=== PATIENT | female | born 1965 | race African-American/Black ===

== ENCOUNTER 2021-07-03 06:38 | Inpatient (IN) | payer BC ==
[~2021-07-03] VITALS: Ht 154.9 cm; Wt 165.3 kg
[2021-07-03] VITALS (17 sets, daily range): BP systolic 113–151; BP diastolic 49–85
--- NOTE | ~2021-07-03 | EMS ---
[address] [address] EMS Patient Care Report Name: BIBI DALLAS Room #: REG SARAH Austin#: [id number] Admission: 07/03/21 Attend Phys: Discharge: Date of : 65 Report #: [id number] THIS REPORT FOR: //name// Report Transmitted: 07/03/2021 06:31 EMS Care Summary [place], [place]/[facility] Incident [id number] @ 07/03/2021 05:52 Incident Location [address] [place] [address] Patient JUSTICE DALLAS Female, 55 Years 1965 Patient Address [address] [place] [address] Patient History Congestive Heart Failure (CHF),Hypertension (HTN),Hyperlipidemia,Gastro-Esophageal Reflux Disease (GERD),Morbid Obesity,Depression,Atrial Fibrillation,Sleep Apnea,Type 2 Diabetes,Chronic Respiratory Failure, Patient Allergies No known allergies, Patient Medications Diltiazem, Eliquis, Vitamin B12, Ascorbic Acid, Ferrous Sulfate, Albuterol, Sertraline, Torsemide, Prednisone, Folic acid, Cholecalciferol, Chief Complaint Lethargic, decrease SaO2 Disposition Transported No Lights/Superior Dispatch Reason Breathing Problem Transported To [address] [address] EMS Patient Care Report Name: BIBI DALLAS Room #: REG Geovanna#: [id number] Admission: 07/03/21 Attend Phys: Discharge: Date of : 65 Report #: [id number] Narrative Called for SOB. Upon arrival, pt was in her bed, lethargic and in minor/moderate resp distress. NH staff reported pt was last known well at 2330 last night and then at 0330 was arguing with roommate. At 0530 pt was found with RA SaO2 in 70's and would not improve with increased O2 @ 5 lpm. NH staff denied fever, vomiting and diarrhea. Pt placed on a NRB @ 12 lpm. 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 When moving her over, it was discovered the pt NC which she wears at all times was off the pt. It is believed that this was the culprit of the problem. In the ambulance, pt is now CAR x 3, in no resp distress. SaO2 of 100%. Pt states she does not hurt anywhere, is in no distress. Vitals obtained x 2, D-stick. En route: cont to monitor the pt, no significant changes. RR to the ER. Arrived: pt taken to ER #10 and moved to their bed w/o incident. Pt care & report to ER staff. Initial Vitals @06:03P: 88,R: 32,Pain: 0/10,GCS: 11,SpO2: 70, @06:16P: 86,R: 20,BP: 133/84,Pain: 0/10,GCS: 15,SpO2: 94,Revised Trauma: 12, @06:21P: 69,R: 18,BP: 106/71,Pain: 0/10,GCS: 15,Glucose: 150,SpO2: 100,Revised Trauma: 12, Assessments @06:01MENTAL:Confused,Person Oriented,SKIN:HEENT:LUNG SOUNDS:ABDOMEN:PELVIS//GI:EXTREMITIES:Left Arm: No Abnormalities,Right Arm: No Abnormalities,Left Leg: No Abnormalities,Right Leg: No Abnormalities,PULSE:Radial: 2+ Normal,NEURO:No Abnormalities,@06:20MENTAL:Person Oriented,Time Oriented,Place Oriented,Event Oriented,SKIN:HEENT:LUNG SOUNDS:ABDOMEN:PELVIS//GI:EXTREMITIES:PULSE:NEURO: Impression Acute Respiratory Distress (Dyspnea) Procedures @PTAOxygen FlowRate: 2 Device: Nasal Cannula (NC) Response: WorseFailed@06:05Oxygen FlowRate: 12 Device: Non Re-breather Mask (NRB) Response: ImprovedSucceeded@PTAOxygen FlowRate: 5 Device: Nasal Cannula (NC) Response: WorseFailed@06:10StretcherResponse: Unchanged@06:01ALS AssessmentResponse: ImprovedSucceeded Timeline CLIENT RELATIONSHIP CONSULTANT,Oxygen FlowRate: 2 Device: Nasal Cannula (NC) Response: WorseFailed, CLIENT RELATIONSHIP CONSULTANT,Oxygen FlowRate: 5 Device: Nasal Cannula (NC) Response: WorseFailed, 05:51,Call Received 05:51,Dispatch Notified 05:52,Dispatched 05:55,[place] [address] EMS Patient Care Report Name: BIBI DALLAS Room #: REG ER Geovanna#: [id number] Admission: 07/03/21 Attend Phys: Discharge: Date of : 65 Report #: [id number] 05:59,On Scene 06:00,At Patient 06:01,ALS Assessment,Response: ImprovedSucceeded, 06:03,BP: / M,PULSE: 88,RR: 32 R,SPO2: 70 Ox,ETCO2: ,BG: ,PAIN: 0,GCS: 11, 06:05,Oxygen FlowRate: 12 Device: Non Re-breather Mask (NRB) Response: ImprovedSucceeded, 06:10,Stretcher,Response: Unchanged 06:16,BP: 133/84 M,PULSE: 86,RR: 20 R,SPO2: 94 Ox,ETCO2: ,BG: ,PAIN: 0,GCS: 15, 06:21,BP: 106/71 M,PULSE: 69,RR: 18 R,SPO2: 100 Ox,ETCO2: ,B,PAIN: 0,GCS: 15, 06:21,Depart Scene 06:31,At Destination 06:57,Call Closed Disclaimer v1.1 Copyright 2020 [employer] This EMS Care Summary contains data elements from the applicable legal record (which may be displayed differently). It is designed to provide pertinent information for the following purposes: continuity of care, clinical quality, and state data reporting. The complete legal record is available to ED staff and administrators of the receiving hospital in ES's Patient Tracker. All data is provided "as is."
[2021-07-03 08:09] LABS: HEMATOCRIT 36.3 % (37.0-47.0); HEMOGLOBIN 9.8 gm/dL (12.0-15.0); MCH 21.3 pg (26.0-34.0); MCHC 27.1 g/dL (28.0-37.0); MCV 78.8 fL (80.0-100.0); PLATELET COUNT 261 thou/uL (150-400); RDW 20.3 % (10.5-14.5); WBC 7.6 thou/uL (4.0-11.0)
[2021-07-03 08:27] LABS: BE(vivo) 28.9 mmol/L (-2 to +3); HCO3 65.1 mmol/L (22.0-26.0); PCO2 189.3 mmHg (35.0-45.0); PO2 116.7 mmHg (80.0-100.0); pH 7.154 (7.360-7.450)
[2021-07-03 08:48] LABS: BUN 29 mg/dL (7-18); CALCIUM 8.6 mg/dL (8.5-10.1); CHLORIDE 99 mmol/L (98-107); CREATININE 0.9 mg/dL (0.6-1.0); GLUCOSE 120 mg/dL (74-106); SODIUM 145 mmol/L (136-145)
[2021-07-03 08:49] LABS: POTASSIUM 5.3 mmol/L (3.5-5.1)
[2021-07-03 08:51] LABS: CO2 > 45 mmol/L (21-32)
[2021-07-03 08:54] LABS: SGOT 42 U/L (15-37); SGPT 25 U/L (14-59); TOTAL BILIRUBIN 0.4 mg/dL (0.2-1.0); TOTAL PROTEIN 8.1 g/dL (6.4-8.2)
[2021-07-03 09:18] LABS: ABSOLUTE NEUTROPHILS 5.9 thou/uL (1.4-8.2); ANISOCYTOSIS 2+; HYPOCHROMASIA 2+; MICROCYTES 2+; PLATELET ESTIMATE NORMAL; POIKILOCYTOSIS 1+; POLYCHROMASIA SLIGHT
[2021-07-03 10:09] LABS: BE(vivo) 38.7 mmol/L (-2 to +3); HCO3 75.6 mmol/L (22.0-26.0); PCO2 199.8 mmHg (35.0-45.0); PO2 86.3 mmHg (80.0-100.0); pH 7.196 (7.360-7.450); sO2 91.6 % (92.0-98.0)
[2021-07-03 12:21] LABS: BE(vivo) 34.1 mmol/L (-2 to +3); HCO3 62.9 mmol/L (22.0-26.0); PCO2 81.8 mmHg (35.0-45.0); PO2 54.2 mmHg (80.0-100.0); pH 7.504 (7.360-7.450); sO2 88.6 % (92.0-98.0)
--- NOTE | 2021-07-03 12:40 | NUR ---
BARIATRIC BED ORDERED, TRYING TO GET BED HERE BEFORE SHE ARRIVES IN THE ICU
--- NOTE | 2021-07-03 13:54 | EKG ---
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 : 1965 Requested By: Luis Prater Order Number: [id number] MD: Xavier Broderick Measurements Intervals [place] Rate: 79 P: 52 FL: 158 QRS: 84 QRSD: 108 T: 41 QT: 395 QTc: 453 Interpretive Statements Sinus rhythm LAE, consider biatrial enlargement Borderline low voltage, extremity leads Minimal ST elevation, diffuse leads No previous ECG available for comparison Electronically Signed On 07-03-2021 13:54:10 CDT by Xavier Broderick [email or web address] <ELECTRONICALLY SIGNED> By: Xavier Broderick MD, FACC 07/03/21 1354 0740 0740 Xavier Broderick MD, FACC /EPI
[2021-07-03] MEDS ORDERED: PROAIR HFA8.5 GM INH (14:35)
[2021-07-03] MEDS ORDERED: VITAMIN C500 M1 PO (14:35)
[2021-07-03] MEDS ORDERED: DILTIAZEM 24HR240 M1 PO (14:36)
[2021-07-03] MEDS ORDERED: VITAMIN B-121000 MC2 PO (14:36)
[2021-07-03] MEDS ORDERED: D3-200050 MCG PO (14:36)
[2021-07-03] MEDS ORDERED: FOLIC ACID1 MG PO (14:37)
[2021-07-03] MEDS ORDERED: FEOSOL325 M1 PO (14:37)
[2021-07-03] MEDS ORDERED: JUVEN PACKET1 EAC1 PO (14:37)
[2021-07-03] MEDS ORDERED: ELIQUIS5 MG PO (14:37)
[2021-07-03] MEDS ORDERED: ROXICODONE5 M2 PO (14:38)
[2021-07-03] MEDS ORDERED: PREDNISONE 10 M10 MG PO (14:38)
[2021-07-03] MEDS ORDERED: METHIMAZOLE5 MG PO (14:38)
[2021-07-03] MEDS ORDERED: CENTRUM SILVER1 EAC5 PO (14:38)
[2021-07-03] MEDS ORDERED: TORSEMIDE10 MG PO (14:39)
[2021-07-03] MEDS ORDERED: AAA-MED REC COMPLETE PO (14:39)
[2021-07-03] MEDS ORDERED: ZOLOFT 50 MG TA50 MG PO (14:39)
[2021-07-03] MEDS ORDERED: PROSOURCE PLUS30 ML PO (14:39)
[2021-07-03 15:45] LABS: % SATURATION 14 % (20-39); IRON 58 ug/dL (50-170); TIBC 404 ug/dL (250-450)
--- NOTE | 2021-07-03 17:37 | NUR ---
VAT CONSULTED FOR CVAD. RIJ WAS WIDELY PATENT WITH USG. 6FR TL POWER JACC 25CM INSERTED TO 10CM EXTERNAL. STAT CXR ORDERED. PT HAS THICK, LARGE NECK.
--- NOTE | 2021-07-03 17:55 | NUR ---
RIJ RELEASED FOR IMMEDIATE USE PER PROTOCOL
--- NOTE | 2021-07-03 18:58 | NUR ---
PT ARRIVED ON THE UNIT AT 1400 ON THE VENT PT IS NOT MEETING GOALS DUE TO NEEDING VENT SUPPORT
[2021-07-03 20:07] LABS: FOLIC ACID 19.3 ng/mL (8.6-58.9)
--- NOTE | 2021-07-03 22:50 | NUR ---
ASSUMED CARE AT 1900. SPOKE TO PT'S MOTHER, BAO, AT 1999, GAVE UPDATE ON PT AND PROVIDED W/PT CODE. STARTED PT ON VERSED GTT IN ADDITION TO PROPOFOL. WILL CONTINUE TO MONITOR.
[2021-07-04] VITALS (45 sets, daily range): BP systolic 113–183; BP diastolic 61–96
[2021-07-04 05:25] LABS: HEMATOCRIT 33.9 % (37.0-47.0); HEMOGLOBIN 9.7 gm/dL (12.0-15.0); MCHC 28.7 g/dL (28.0-37.0); MCV 76.7 fL (80.0-100.0); PLATELET COUNT 305 thou/uL (150-400); RBC 4.42 mil/uL (4.20-5.00); RDW 19.7 % (10.5-14.5); WBC 10.8 thou/uL (4.0-11.0)
[2021-07-04 06:33] LABS: ALBUMIN 2.7 g/dL (3.4-5.0); BUN 36 mg/dL (7-18); CHLORIDE 95 mmol/L (98-107); CREATININE 1.6 mg/dL (0.6-1.0); GLUCOSE 142 mg/dL (74-106); MAGNESIUM 1.6 mg/dL (1.8-2.4); POTASSIUM 3.5 mmol/L (3.5-5.1); SGOT 20 U/L (15-37); SGPT 17 U/L (14-59); SODIUM 146 mmol/L (136-145); TOTAL BILIRUBIN 0.5 mg/dL (0.2-1.0); TOTAL PROTEIN 7.7 g/dL (6.4-8.2)
[2021-07-04 06:36] LABS: CO2 > 45 mmol/L (21-32)
[2021-07-04 09:21] LABS: BE(vivo) 27.9 mmol/L (-2 to +3); HCO3 52.4 mmol/L (22.0-26.0); PCO2 50.1 mmHg (35.0-45.0)
[2021-07-04 09:23] LABS: PO2 54.9 mmHg (80.0-100.0); pH 7.637 (7.360-7.450)
--- NOTE | 2021-07-04 11:35 | 2DMMODE ---
[facility] [place] [address] 2 D/M-MODE ECHOCARDIOGRAM Name: BIBI DALLAS Room #: 236-P ADM IN M.R.#: [id number] Admission: 07/03/21 Attend Phys: John Nolasco MD Discharge: Date of : 65 Report #: [id number] THIS REPORT FOR: cc: Luis Fernando Story MD, Srinath MD Lundgren, Craig H. MD [facility] ~ APPROVED REPORT Study performed: 07/04/2021 10:19:46 EXAM: Comprehensive 2D, Doppler, and color-flow Echocardiogram Patient Location: ICU Room #: 236 Status: routine BSA: 2.39 HR: 92 bpm BP: 151/82 mmHg Rhythm: Atrial Fibrillation Other Information Study Quality: Adequate Indications COPD Diabetes Atrial Fibrillation Dyspnea Hypertension/HDD Morbid obesity 2D Dimensions RVDd: 53.20 mm IVSd: 12.53 (7-11mm) LVOT Diam: 20.89 (18-24mm) LVDd: 47.27 mm PWd: 13.25 (7-11mm) Ascending Ao: 31.83 (22-36mm) LVDs: 34.87 (25-40mm) Left Atrium: 41.76 (27-40mm) Aortic Root: 25.44 mm IVC: 22.00 mm Volumes Left Atrial Volume (Systole) Single Plane 4CH: 49.61 mL Single Plane 2CH: 57.83 mL LA ESV Index: 25.00 mL/m2 [facility] [address] [place] [address] 2 D/M-MODE ECHOCARDIOGRAM Name: BIBI DALLAS Room #: 236-P ADM IN M.R.#: [id number] Admission: 07/03/21 Attend Phys: John Nolasco MD Discharge: Date of : 65 Report #: [id number] Aortic Valve AoV Peak Gonzalez.: 1.71 m/s AO Peak Gr.: 11.68 mmHg LVOT Max P.83 mmHg LVOT Max V: 1.21 m/s ABIOLA Vmax: 2.42 cm2 Pulmonary Valve PV Peak Gonzalez.: 1.29 m/s PV Peak Gr.: 6.70 mmHg Tricuspid Valve TR Peak Gonzalez.: 2.97 m/s TR Peak Gr.: 35.43 mmHg PA Pressure: 50.00 mmHg Left Ventricle The left ventricle is normal size. There is normal LV segmental wall motion. Mild concentric left ventricular hypertrophy. The left ventricular systolic function is normal. The left ventricular ejection fraction is within the normal range. LVEF is 60-65%. This study is not technically sufficient to allow evaluation of the LV diastolic function due to atrial fibrillation. Right Ventricle Right ventricle is dilated. The right ventricular systolic function is normal. Atria The left atrium size is normal. Right atrium is dilated. Aortic Valve The aortic valve is normal in structure. No aortic regurgitation is present. There is no aortic valvular stenosis. Mitral Valve The mitral valve is normal in structure. Trace to mild mitral regurgitation. No evidence of mitral valve stenosis. Tricuspid Valve The tricuspid valve is normal in structure. There is trace tricuspid regurgitation. Estimated PAP 50 mmHg. There is moderate pulmonary hypertension. Pulmonic Valve The pulmonary valve is normal in structure. Trace pulmonic regurgitation. [facility] [address] [place] [address] 2 D/M-MODE ECHOCARDIOGRAM Name: BIBI DALLAS Room #: [facility] ADM IN .R.#: [id number] Admission: 07/03/21 Attend Phys: John Nolasco MD Discharge: Date of : 65 Report #: [id number] Great Vessels The aortic root is normal in size. The inferior vena cava is dilated with no inspiratory collapse. Pericardium There is no pericardial effusion. <Conclusion> The left ventricular systolic function is normal. There is normal LV segmental wall motion. LVEF is 60-65%. Right atrium and ventricle are dilated. The aortic valve is normal in structure. No aortic regurgitation or stenosis The mitral valve is normal in structure. Trace to mild mitral regurgitation. There is trace tricuspid regurgitation. Estimated pulmnonary artery pressure of 50 mmHg. There is no pericardial effusion. <ELECTRONICALLY SIGNED> By: Juarez Méndez MD, [facility] 07/04/21 1134 1134 1134 Juarez Méndez MD, FACC /INF
--- NOTE | 2021-07-04 13:36 | NUR ---
55-year-old female and admitted on 07-03-21 and being treated for: Acute on chronic hypoxemic, hypercapnic, tachypneic respiratory failure requiring intubation, Hx of Diastolic CHR, Troponin of 13, Initial COVID results as negative, IDDM, borderline hyperkalemia, HTN. Anemia, Hx of Afin, Depression, Hyperparathyroidism, obesity with muscle weakness, and sleep apnea. Patient currently resides at [facility] at [phone]. Mother Alessia Bernstein is listed as next of kin at [phone] and per record nursing is keeping updated on current medical status with the mother. Pulmonary care of: FI01 of 40% with peep of 5. Per attending AM MD review: Plan to continue current plan of ICU care and will follow with all consultants. CM continues to follow MD's direction for care and transition and will intervene as needs are identified, noting anticipated when able the need for PT/OT evaluations for probable skilled care at discharge. For now, CM will await MD direction for discharge needs.
[2021-07-04 13:52] LABS: NUCLEATED RBCS 1 /100WBC
[2021-07-04 13:55] LABS: ANISOCYTOSIS 2+; HYPOCHROMASIA 2+; MICROCYTES 1+; OVALOCYTES 2+
--- NOTE | 2021-07-04 14:23 | NUR ---
SPOKE WITH PATIENT'S MOTHER, BAO, OVER THE PHONE AND SHE WAS UPDATED AND EDUCATED ON THE PATIENT'S CONDITION AND PLAN OF CARE FROM [id number].
--- NOTE | 2021-07-04 17:24 | NUR ---
PATIENT'S SON, MELA, CALLED FROM [phone] AND HE WAS UPDATED AND EDUCATED ON THE PATIENT'S CONDITION AND PLAN OF CARE. PATIENT SLOWLY PROGRESSING TOWARDS THE PLAN OF CARE EVIDENCED BY DECREASED SEDATION NEEDS FOR VENT MANAGEMENT.
[2021-07-05] VITALS (48 sets, daily range): BP systolic 88–152; BP diastolic 43–112
[2021-07-05 05:03] LABS: BE(vivo) 22.2 mmol/L (-2 to +3); HCO3 50.6 mmol/L (22.0-26.0); PCO2 77.1 mmHg (35.0-45.0); pH 7.435 (7.360-7.450); sO2 90.8 % (92.0-98.0)
[2021-07-05 05:49] LABS: HEMATOCRIT 35.1 % (37.0-47.0); HEMOGLOBIN 10.2 gm/dL (12.0-15.0); MCH 21.3 pg (26.0-34.0); MCV 73.3 fL (80.0-100.0); PLATELET COUNT 312 thou/uL (150-400); RBC 4.78 mil/uL (4.20-5.00); RDW 19.9 % (10.5-14.5)
[2021-07-05 06:00] LABS: ALBUMIN 2.7 g/dL (3.4-5.0); BUN 51 mg/dL (7-18); CALCIUM 8.9 mg/dL (8.5-10.1); CHLORIDE 99 mmol/L (98-107); CREATININE 1.8 mg/dL (0.6-1.0); GLUCOSE 158 mg/dL (74-106); POTASSIUM 3.1 mmol/L (3.5-5.1); SGOT 16 U/L (15-37); SGPT 16 U/L (14-59); SODIUM 147 mmol/L (136-145); TOTAL BILIRUBIN 0.3 mg/dL (0.2-1.0); TOTAL PROTEIN 7.9 g/dL (6.4-8.2)
[2021-07-05 06:04] LABS: CO2 > 45 mmol/L (21-32)
[2021-07-05 08:54] LABS: ABSOLUTE NEUTROPHILS 9.8 thou/uL (1.4-8.2); ANISOCYTOSIS 2+; HYPOCHROMASIA 2+; METAMYELOCYTES 1 %; MICROCYTES 1+; NUCLEATED RBCS 2 /100WBC
[2021-07-05 08:55] LABS: OVALOCYTES 1+
--- NOTE | 2021-07-05 11:07 | NUR ---
ASSUMED CARE OF PT AT 0700 GAVE PT SEDATION VACATION SO THAT RT COULD DO A CPAP TRIAL, PT BECAME EXTREMELY AGITATED AND WAS FLAILING AND THRASHING IN THE BED, SO PT WAS PUT BACK ON THE VENT AND SEDATED.
[2021-07-06] VITALS (47 sets, daily range): BP systolic 125–174; BP diastolic 63–86
[2021-07-06 04:51] LABS: ABSOLUTE NEUTROPHILS 13.1 thou/uL (1.4-8.2); BASOPHILS 0.1 % (0.0-2.0); HEMATOCRIT 33.6 % (37.0-47.0); LYMPHOCYTES 3.4 % (24.0-44.0); MCH 21.9 pg (26.0-34.0); MCHC 29.7 g/dL (28.0-37.0); MCV 73.5 fL (80.0-100.0); MONOCYTES 4.5 % (1.0-8.0); PLATELET COUNT 281 thou/uL (150-400); RBC 4.56 mil/uL (4.20-5.00); RDW 19.7 % (10.5-14.5); WBC 14.2 thou/uL (4.0-11.0)
[2021-07-06 05:33] LABS: CALCIUM 8.9 mg/dL (8.5-10.1); CREATININE 1.2 mg/dL (0.6-1.0); POTASSIUM 3.6 mmol/L (3.5-5.1)
--- NOTE | 2021-07-06 08:16 | NUR ---
updates faxed to [facility]
--- NOTE | 2021-07-06 09:10 | NUR ---
If unable to extubate today, recommend initiate enteral nutrition of vital HP at 30ml/hr goal.
--- NOTE | 2021-07-06 10:59 | NUR ---
Spoke to patient's mother, Alessia Bernstein, regarding patient condition. Patient failed CPAP trial at this time d/t patient's RR, RSI, and TV during trial. Sedation resumed. patient was alert and following commands at the time of CPAP trial.
--- NOTE | 2021-07-06 13:58 | NUR ---
Vent, nutritional support. No anticipated dc over the weekend. Cm consult to call son, spoke with sue. Had dc questions, don't want her to go back to [facility] per son. Education that sometimes there is not time t found another facility before someone is medically stable for dc. Well i going to look into in home care per clotilde. Cm provided education on hh vs private duty in home care that insurance does not cover. Ok still don't want her going back there so going to see about care at home per son. Will cont following as needed for dc needs.
--- NOTE | 2021-07-06 17:14 | NUR ---
Transport here to filler picker patient. Danitza Veronica notified of transport back to [facility].
[2021-07-07] VITALS (45 sets, daily range): BP systolic 108–161; BP diastolic 53–88
[2021-07-07 04:54] LABS: ABSOLUTE NEUTROPHILS 10.4 thou/uL (1.4-8.2); HEMATOCRIT 34.7 % (37.0-47.0); HEMOGLOBIN 10.3 gm/dL (12.0-15.0); LYMPHOCYTES 3.1 % (24.0-44.0); MCH 21.7 pg (26.0-34.0); MCHC 29.8 g/dL (28.0-37.0); MCV 72.9 fL (80.0-100.0); MONOCYTES 4.1 % (1.0-8.0); PLATELET COUNT 281 thou/uL (150-400); POLYS 92.8 % (36.0-66.0); RBC 4.76 mil/uL (4.20-5.00); RDW 20.3 % (10.5-14.5); WBC 11.2 thou/uL (4.0-11.0)
[2021-07-07 05:16] LABS: BE(vivo) 14.6 mmol/L (-2 to +3); HCO3 40.8 mmol/L (22.0-26.0); PCO2 58.4 mmHg (35.0-45.0); PO2 85.8 mmHg (80.0-100.0); pH 7.462 (7.360-7.450); sO2 96.7 % (92.0-98.0)
[2021-07-07 05:29] LABS: ALBUMIN 2.7 g/dL (3.4-5.0); CALCIUM 8.8 mg/dL (8.5-10.1); POTASSIUM 3.9 mmol/L (3.5-5.1); TOTAL BILIRUBIN 0.2 mg/dL (0.2-1.0); TOTAL PROTEIN 7.1 g/dL (6.4-8.2)
[2021-07-07 12:45] LABS: HCO3 41.4 mmol/L (22.0-26.0); PO2 87.3 mmHg (80.0-100.0); pH 7.356 (7.360-7.450); sO2 95.8 % (92.0-98.0)
[2021-07-07 12:46] LABS: PCO2 75.6 mmHg (35.0-45.0)
--- NOTE | 2021-07-07 13:25 | NUR ---
Dr. Cortes notified of [facility] s/p CPAP trial. Would like to hold off on extubating today and diurese her. Possible extubation tomorrow. Patient resumed on sedatives. Tolerated CPAP mode well.
--- NOTE | 2021-07-07 18:10 | NUR ---
Patient's son called and updated on patient condition. Questions answered.
[2021-07-08] VITALS (37 sets, daily range): BP systolic 104–173; BP diastolic 47–82
--- NOTE | 2021-07-08 01:10 | NUR ---
ASSUMED CARE OF PT AT 18:45. PT IS ABLE TO SQUEEZE HAND UPON REQUEST. SHE NODS HER HEAD YES AND NO. ELLEN. GAG +. VSS T 99. PT RESTING QUIETLY ON CURRENT SEDATION OF PRECIDEX AND PROPOFOL. BED DOWN CALL LIGHTIN REACH. SR WITH PACS ON MONITOR. RESPIRATIONS UNLABORED ON CURRENT VENT SETTINGS. RESIDUALS WNL. WILL CONTINUE TO MONITOR PT FOR CHANGES.
--- NOTE | 2021-07-08 08:35 | NUR ---
PT PROGRESSING TOWARDS D/C GOALS. VSS AFEBRILE THIS AM. TOLERATING TF. RESIDUALS WNL. NO C/O PAIN. NO S/S DISTRESS. BED CHANGED BATH COMPLETED. CHANGED RIGHT BUTTOCK WOUND ORDERED WITH [facility]AKINS SOLUTION AT 05:40 THIS AM. PT INC STOOLIN LG AMTS. AQUAFOR LOTION APPLIED ORDERED TO LES.
[2021-07-08 08:46] LABS: BE(vivo) 13.4 mmol/L (-2 to +3); HCO3 40.7 mmol/L (22.0-26.0); PCO2 67.5 mmHg (35.0-45.0); PO2 80.8 mmHg (80.0-100.0); pH 7.398 (7.360-7.450); sO2 95.5 % (92.0-98.0)
--- NOTE | 2021-07-08 10:00 | NUR ---
PT PASSES WEANING TRIAL; SHE IS EXTUBATED AT 0930. THIS RN AND RT IS AT THE BEDSIDE. PT HAS JUAN , VSS, AND BREATHING IS REGULAR. SHE IS SATTING 95% ON 4L VIA A FACE MASK WITH 35% FIO2. PT IS A/O X4, NO VOCAL CORD INJURY IS NOTED.
--- NOTE | 2021-07-08 11:32 | EKG ---
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 : 1965 Requested By: Harpreet Cortes Order Number: [id number] MD: Xavier Broderick Measurements Intervals [place] Rate: 80 P: 49 NC: 194 QRS: 69 QRSD: 106 T: 40 QT: 388 QTc: 448 Interpretive Statements Sinus rhythm Multiform ventricular premature complexes LAE, consider biatrial enlargement Low voltage, extremity leads Abnormal R-wave progression, late transition Baseline wander in lead(s) V6 Compared to ECG 07/03/2021 07:40:30 Ventricular premature complex(es) now present Electronically Signed On 07-08-2021 11:31:44 CDT by Xavier Broderick [email or web address] <ELECTRONICALLY SIGNED> By: Xavier Broderick MD, FAC 07/08/21 1131 1311 1311 Xavier Broderick MD, [facility] /EPI
[2021-07-09] VITALS (21 sets, daily range): BP systolic 123–174; BP diastolic 44–108
--- NOTE | 2021-07-09 06:00 | NUR ---
PT HAS BEEN AWAKE AND ALERT ALLL NIGHT WATCHING TV 900 CC UO THIS SHIFT C/0 RIGHT HAND BEING PAINFUL AND SWOLLEN. TYLENOL GIVEN A VERY DELIGHTFUL LITTLE LADY. PROGRESSING TOWARD GOALS. POSSIBLE TX TODAY
--- NOTE | 2021-07-09 13:46 | NUR ---
Pt son at bedside while pt works with PT.
--- NOTE | 2021-07-09 15:41 | NUR ---
Chart review. consult cm. Extubated on . Discussed during los and unit rounds. possible able to move out of icu today. o2 4 L/nc. opal reported she doesnt want to return to [facility]. Re-checked to see if able to check on other facility in area. When speaking with daughter poonam, education on dcp, therapy consults and recommendation for safe dc. 1st choice home with grandson sue # [phone], he trying to get her belongings from [facility] but she has to call to release them to him, hh will be fine per poonam.
[2021-07-10 03:29] VITALS: BP 115/70
--- NOTE | 2021-07-10 05:10 | NUR ---
PROGRESS PT A/O X4. NOT OOB THIS SHIFT BUT TO START PT/OT IN AM. C/O PAIN TO RIGHT HAND SWOLLEN FROM IV INFLITRATION, ELEVATED AND WARM BLANKET APPLIED, TYLENOL GIVEN WITH MINIMAL EFFECT. PT ABLE TO REPOSITION SELF IN BED. VSS TOLERATING CPAP ACCUCHECKS AND SSI ORDERED. CONTINUE POC.
[2021-07-10 07:14] VITALS: BP 121/64
[2021-07-10 10:52] LABS: BE(vivo) 11.4 mmol/L (-2 to +3); HCO3 39.6 mmol/L (22.0-26.0); PO2 83.9 mmHg (80.0-100.0)
[2021-07-10 10:53] LABS: pH 7.323 (7.360-7.450)
[2021-07-10 11:03] VITALS: BP 152/89
--- NOTE | 2021-07-10 11:10 | NUR ---
THIS RN RECEIVED CRITCAL LAB VALUE FROM [facility], PH 7.323, PCO2 78. THIS RN CALLED DR. SUN NO ORDERS RECEIVED AT THIS TIME.
--- NOTE | 2021-07-10 14:41 | NUR ---
SW reviewed chart and spoke with nursing and attending physician. Pt was transferred to from ICU. Pt is on 3L of O2 and IV steroids. PT/OT consulted. SW spoke with pt via phone. Introduced role of SW. Pt is alert/orientated x 4. Pt states that her goal is to return home with HH when medically stable for discharge. Pt states that her son will be able to stay with her for awhile. Pt does not want to return to [facility]. SW discussed alternate options for post-acute care if needed. Pt may consider if recommended. SW further discussed HH services. SW discussed several options for providers. No preference voiced at this time. Pt works for the [employer] and she is wanting to return to work soon if possible. Pt is normally on continuous O2 via NC (2-3L) through [employer] and has a cpap machine through [employer] Pt has a PCP, but cannot remember her name at this time. SW explained that her progress with therapy will be monitored and then discharge disposition can be discussed. Pt verbalized understanding. SW asked 5N vocational rehabilitation teacher to review therapy notes to determine if pt may benefit from a 5N consult. HERLINDA asked [facility] HH liaison to check pt's insurance for HH coverage. SW is following to assist as needed with discharge planning.
[2021-07-10 15:24] VITALS: BP 144/76
--- NOTE | 2021-07-10 16:12 | HC ---
[facility] [place] [address] CONSULTATION Name: BIBI DALLAS Room #: 359-P ADM IN M.R.#: [id number] Admission: 07/03/21 Attend Phys: John Nolasco MD Discharge: Date of : 65 Report #: [id number] THIS REPORT FOR: cc: Luis Fernando Story MD, Srinath MD Althoff,Jesús Dunn MD ~ DATE OF SERVICE: 07/05/2021 CHIEF COMPLAINT: Stage 3 gluteal pressure ulceration. HISTORY OF PRESENT ILLNESS: This is a 55-year-old female patient who was admitted to [facility] with respiratory distress. She is intubated. No history is obtainable. She has a history of COPD. ALLERGIES: No known drug allergies. PAST MEDICAL HISTORY: From her records include hypercapnic respiratory failure, COPD, obesity, hypertension, diabetes mellitus, hyperlipidemia, congestive heart failure, gastroesophageal reflux, atrial fibrillation. MEDICATIONS: Albuterol, vitamin C, vitamin B12, vitamin D3, diltiazem, Eliquis, Feosol, Filippo, methimazole, Roxicodone, torsemide. FAMILY HISTORY: Unknown. SOCIAL HISTORY: Unknown. REVIEW OF SYSTEMS: Not obtainable. PHYSICAL EXAMINATION: VITAL SIGNS: The patient's vital signs at this time include temperature 36.3, pulse 46, respiratory rate 14, blood pressure 126/72. GENERAL: This is a chronically ill-appearing female patient who appears to be in no obvious distress. She is on a ventilator. HEENT: Head is normocephalic. NECK: Supple. LUNGS: Diminished. HEART: Irregular. ABDOMEN: Soft, nontender. PELVIC: Pelvic region demonstrates stage 3 pressure ulceration to the right gluteal region. EXTREMITIES: Hyperkeratosis to bilateral lower extremities. LABORATORY STUDIES: Include sodium 147, potassium 3.1, chloride 99, CO2 greater than 45, BUN 51, creatinine 1.8, albumin is 2.7. White blood cell count is 11.[address] [address] CONSULTATION Name: BIBI DALLAS Room #: 359-P [facility] IN .R.#: [id number] Admission: 07/03/21 Attend Phys: John Nolasco MD Discharge: Date of : 65 Report #: [id number] with hemoglobin of 10.2. CLINICAL IMPRESSION: 1. Stage 3 pressure ulceration to the right gluteal region. 2. Hyperkeratosis, bilateral lower extremities. 3. Acute on chronic hypoxic, hypercapnic respiratory failure. 4. Morbid obesity. 5. Congestive heart failure. RECOMMENDATIONS: At this point in time, we will recommend topical Quarter Strength Dakin's moist gauze, ABD and tape b.i.d. low air loss mattress, q. 2 hours turning positioning. Recommend Aquaphor to the lower extremity hyperkeratosis. I appreciate being asked to see her in consultation. <ELECTRONICALLY SIGNED> By: Jesús Pike MD 07/10/21 1612 1209 2350 Jesús Pike MD /reese
--- NOTE | 2021-07-10 18:27 | NUR ---
PT ALERT AND ORIENTED X 4. CHANGED DRESSING ON R GLUTE. PT ON 3 L CURRENTLY AND IS ON 3 L AT HOME. LUNGS DIMINISHED. SPOKE WITH PT'S MOTHER THIS SHIFT, BAO, AND MOTHER WANTED TO KNOW IF PT WOULD BE GOING HOME WITH HOME HEALTH UPON DISCHARGE. PT DENIES PAIN. PT DENIES ANY NEEDS AT THIS TIME AND WILL CONTINUE TO MONITOR.
[2021-07-10 19:16] VITALS: BP 145/101
[2021-07-11 03:40] VITALS: BP 147/80
[2021-07-11 07:24] VITALS: BP 153/80
[2021-07-11 10:15] LABS: HEMATOCRIT 29.6 % (37.0-47.0); HEMOGLOBIN 8.3 gm/dL (12.0-15.0); MCH 20.7 pg (26.0-34.0); MCHC 27.9 g/dL (28.0-37.0); MCV 74.2 fL (80.0-100.0); RBC 3.99 mil/uL (4.20-5.00); RDW 20.2 % (10.5-14.5); WBC 12.5 thou/uL (4.0-11.0)
[2021-07-11 10:23] LABS: CALCIUM 8.6 mg/dL (8.5-10.1); CREATININE 0.8 mg/dL (0.6-1.0); MAGNESIUM 2.1 mg/dL (1.8-2.4); POTASSIUM 4.2 mmol/L (3.5-5.1)
[2021-07-11 11:20] VITALS: BP 155/93
[2021-07-11 11:47] LABS: HCO3 33.9 mmol/L (22.0-26.0); PCO2 69.9 mmHg (35.0-45.0); PO2 81.5 mmHg (80.0-100.0); pH 7.303 (7.360-7.450); sO2 94.5 % (92.0-98.0)
[2021-07-11 15:03] LABS: URINE BILIRUBIN NEGATIVE (Negative); URINE BLOOD NEGATIVE (Negative); URINE CLARITY CLEAR; URINE COLOR YELLOW; URINE GLUCOSE-RANDOM* NEGATIVE (Negative); URINE KETONES NEGATIVE (Negative); URINE LEUKOCYTES-REFLEX NEGATIVE (Negative); URINE NITRITE-REFLEX NEGATIVE (Negative); URINE PROTEIN (DIPSTICK) TRACE (Negative); URINE UROBILINOGEN 0.2 E.U./dl (0.2-1.0)
--- NOTE | 2021-07-11 16:07 | NUR ---
SW reviewed chart and spoke with nursing and attending physician. Pt is progressing towards goals for discharge. 5N consult completed. Pt does not meet admission criteria for 5N and insurance is [id number]. SW met with pt and her son at bedside to discuss discharge plan. Pt states her goal is to return home with HH. SW discussed additional options for post-acute care. Pt is adamant about going home with HH. HH options provided. No preference voiced. Pt's PCP is DR. Shannan Randle. Pt states she has a walker, home O2 and bipap at home. Pt states her bipap machine is at [facility]. SW updated attending physician and nursing. HERLINDA contacted [facility] liaison. [facility] HERLINDA requested liaison to meet with pt tomorrow. HERLINDA is following to assist as needed with discharge planning.
[2021-07-11 16:44] VITALS: BP 142/66
--- NOTE | 2021-07-11 16:47 | NUR ---
RESUMED PT CARE THIS AM. PT ALERT AND ORIENTED X 4. PT PLEASANT AND COOPERATIVE. CHANGED DRESSING ON R GLUTEAL WOUND X2 TODAY AND PHOTOGRAPHED. PT'S SON AT BEDSIDE THIS AFTERNOON. PT DENIES ANY PAIN OR NEEDS AT THE MOMENT. FALL PRECAUTIONS IN PLACE. WILL CONTINUE TO MONITOR.
[2021-07-11 19:14] VITALS: BP 181/81
--- NOTE | 2021-07-11 21:21 | NUR ---
PT CHEERFUL TALKATIVE WATCHING TV. O2 PER NC. LUNGS DIMINISHED, PT OBESE, CURRY TO DD. SBP ELEVATED PRN PROVIDED. DRESSING INTACT R GLUTEAL AREA. PT REQUESTED COFFEE AND PROVIDED. PT CALLS FOR ASSISTANCE.
--- NOTE | 2021-07-12 00:20 | NUR ---
PT REQUESTED BIPAP FOR HS, RESPIRATORY ASSISTED.
[2021-07-12 03:34] VITALS: BP 140/56
[2021-07-12 07:16] VITALS: BP 168/101
--- NOTE | 2021-07-12 08:50 | NUR ---
VASCULAR ACCESS NURSE ROUNDING. THIS PATIENT IS ON 1 PRN IVP MED. SUGGEST PERIPHERAL IV PLACEMENT AND REMOVAL OF THE CENTRAL LINE ACCESS TO DECREASE RISK OF A CENTRAL LINE RELATED BLOOD STREAM INFECTION.
[2021-07-12 11:25] VITALS: BP 143/95
[2021-07-12 14:52] LABS: HEMATOCRIT 29.6 % (37.0-47.0); HEMOGLOBIN 8.4 gm/dL (12.0-15.0); MCH 21.3 pg (26.0-34.0); MCHC 28.5 g/dL (28.0-37.0); MCV 74.6 fL (80.0-100.0); RBC 3.96 mil/uL (4.20-5.00); RDW 20.3 % (10.5-14.5); WBC 12.3 thou/uL (4.0-11.0)
[2021-07-12 14:56] LABS: CALCIUM 8.7 mg/dL (8.5-10.1); CREATININE 0.9 mg/dL (0.6-1.0); MAGNESIUM 1.8 mg/dL (1.8-2.4); POTASSIUM 4.6 mmol/L (3.5-5.1)
[2021-07-12 15:40] VITALS: BP 151/80
--- NOTE | 2021-07-12 16:22 | NUR ---
HERLINDA reviewed chart and spoke with nursing and attending physician. Pt remains on 3L of O2. Pt is progressing towards goals for discharge. [facility] liaison met with pt. Explained HH benefits. Pt is wanting to try to return back to work soon. Pt agreeable with considering post-acute placement. HERLINDA met with pt at bedside to discuss inpt acute rehab v. SNF options. List of in-network providers given to pt for review. Pt requests referral to [facility]. Pt states she was told her insurance only covers 14 days of skilled therapy, as pt was receiving therapy services initially at [facility]. Pt to review SNF list as well. SW faxed referral to [facility] and notified liaison of new referral. Awaiting insurance coverage details at this time. HERLINDA updated attending physician and HH liaison. HERLINDA is following to assist as needed with discharge planning.
--- NOTE | 2021-07-12 17:02 | NUR ---
assumed care of pt at 0700. pt alert and oriented x4 voicing no particular concerns. requiring 3L NC. up to physical therapy - able to walk to door and back with walker. sitting in chair throughout day. sinus tach with activity. blood sugars controlled. vitals stable. plans on dressing change when patient back in bed. anticipate d/c soon.
[2021-07-12 19:30] VITALS: BP 150/91
--- NOTE | 2021-07-12 22:49 | NUR ---
PT WAS UP IN CHAIR, 2 PERSON WITH WALKER BACK TO BED. PT HAS WIDE UNSTEADY GAIT WITH LEGS. O2 PER NC 3L SAME AT HOME. LUNGS RL CRACKLES. PT TALKING ABOUT WANTING TO GO BACK TO WORK TO HAVE SOCIAL INTERACTIONS, SHE STATED SHE OPENS ENVELOPES WHILE SITTING DOWN. . STATED [facility] WAS TRYING TO GET 2WKS REHAB APPROVED, PT STATES SHE DOES NOT HAVE INSURANCE SINCE SHE IS NOT WORKING, WAS ASKING NURSE QUESTIONS ABOUT DISABILITY AND MEDICAIDE, ENCOURAGE PT TO TALK WITH [facility] TOMORROW. PT STATED THAT HER SON IS WANTING HELP WITH THE HOUSE SINCE SHE HAS BEEN SICK SINCE JANUARY. PT PROVIDED HS SNACK. COCCYX DRESSING INTACT, OBESE GENERALIZED EDEMA.
[2021-07-13 04:41] VITALS: BP 148/85
[2021-07-13 07:38] VITALS: BP 146/82
[2021-07-13 11:17] VITALS: BP 130/75
--- NOTE | 2021-07-13 12:01 | NUR ---
CM CONTACTED SANNA AT [facility] WHO REPORTS PT DOES NOT HAVE A SNF BENEFIT AND IT SHE WAS AT A SNF PRIOR IT WAS NOT AUTHORIZED BECAUSE SHE DOES NOT HAVE THIS BENEFIT. PT DOES HAVE AN ACUTE REHAB BENEFIT BUT IT IS 175/DAY UP TO 875 FOR UNLIMITED DAYS PER ADMISSION TO ACUTE REHAB. CM NOTIFIED UNIT SW.
[2021-07-13 15:07] VITALS: BP 120/67
--- NOTE | 2021-07-13 15:44 | NUR ---
HERLINDA reviewed chart and spoke with nursing and attending physician. Pt is slowly progressing towards goals for discharge. HERLINDA discussed case with [facility] hospital liaison, who states they would like to see pt work more with therapy. Pt's insurance plan does not have any skilled benefits at this time. Pt may have exhausted SNF benefits at [facility]. Pt would have a $175/day copay until she reaches her maximum out of pocket. [facility] liaison to check to confirm copay and where pt is at with her out of pocket. HERLINDA met with pt at bedside to discuss options for discharge. Pt states she is interested in going to rehab, if she can come up with the money to pay her copay. Pt will discuss with her family over the weekend. SW encouraged pt to work with therapy over the weekend to show that she is making progress. HERLINDA explained that if she is not able to pay the copay, then home with HH would be the options. Pt verbalized understanding. HERLINDA updated [facility] liaison, [facility] liaison and attending physician. Nursing also updated. No weekend discharge anticipated. HERLINDA is following to assist as needed with discharge planning.
--- NOTE | 2021-07-13 17:50 | NUR ---
PT ALERT AND ORIENTED X 4. CHANGED DRESSING ON R GLUTEAL WOUND. PT NOW ON 2L NC FROM 3L. CRACKLES IN BILATERAL BASES. PT COMPLAINED OF PAIN ON R HAND AND HAD EFFECTIVE PAIN RELIEF FROM ACETAMINOPHEN. FALL PRECAUTIONS IN PLACE. PT DENIES NEEDS AT THIS TIME. WILL CONTINUE TO MONITOR.
[2021-07-13 19:35] VITALS: BP 147/71
[2021-07-14 04:20] VITALS: BP 146/82
--- NOTE | 2021-07-14 06:15 | NUR ---
02 SATURATION STAYS IN 90'S UNTIL MOVEMENT AND IT WILL DROP TO MID TO LOW 80'S. RT STATES OPTIFLOW RATE IS 40L @ 60%. PT VOIDS VIA URINAL. POC WITH IVF GTT AND IVPB ANTIBIOTICS. COVID POC WITH REMDESIVIR. ACTEMRA GIVEN WITH PREDOSE OF TYLENOL AND BENADRYL. VSS.
--- NOTE | 2021-07-14 06:35 | NUR ---
VSS OVERNIGHT. PT ON CPAP UNTIL 0600 THEN BACK ON NC. Q2 TURNS WHEN PT ALLOWS. PT REQUESTED TYLENOL X1 OVERNIGHT.
[2021-07-14 07:17] VITALS: BP 137/56
[2021-07-14 11:19] VITALS: BP 121/63
[2021-07-14 11:22] VITALS: BP 128/68
[2021-07-14 15:25] VITALS: BP 150/74
[2021-07-14 20:00] VITALS: BP 148/76
--- NOTE | 2021-07-15 01:26 | NUR ---
PT ALERT AND ORIENTED X4. VSS . AEBRILE. UNLABORED ON 3LNC EARLIER AND ON BIPAP NOW AFTER MN. TYLENOL GIVEN FOR R HAND PAIN. BLISTERS INTACT RIGHT HAND. 2+ edema noted to right hand. AQUFOR TO LEGS. PT RESTING QUIETLY PRESENTLY NO C/O . WILL CONTINUE TO MONITOR PT FOR CHANGES.
[2021-07-15 04:37] VITALS: BP 148/82
[2021-07-15 07:43] VITALS: BP 141/66
--- NOTE | 2021-07-15 07:50 | NUR ---
PT PROGRESSING TOWARDS D/C GOALS. VSS AFEBRILE. SATS WNL ON CAP AT HS. RIGHT BUTTOCK DRESSING REMAINS C/D/I. AQUAPHOR APPLIED TO LEGS ORDERED. NO S/S DISTRESS THIS AM.
[2021-07-15 11:17] VITALS: BP 141/75
--- NOTE | 2021-07-15 18:46 | NUR ---
PT ALERT AND ORIENTED X 4. CHANGED DRESSING ON R GLUTEAL AREA. PT HAD BM TODAY. PT ON 3 L NC. PT DENIES PAIN OR ANY NEEDS AT THIS TIME. FALL PRECAUTIONS IN PLACE. WILL CONTINUE TO MONITOR.
[2021-07-15 19:03] VITALS: BP 129/43
--- NOTE | 2021-07-15 22:39 | NUR ---
PT WATCHING TV IN BED, TALKING AND JOKING WITH STAFF. O2 PER NC. LUNGS DIMINISHED. PATRICIO TO SHAR. PROVIDED SNACK. PT PLANS ON DC SOON HOME WITH HH. PT CALLS FOR ASSISTANCE. CPAP AT .
[2021-07-16 04:06] VITALS: BP 160/54
[2021-07-16 05:22] LABS: HEMATOCRIT 28.4 % (37.0-47.0); HEMOGLOBIN 8.3 gm/dL (12.0-15.0); MCH 21.6 pg (26.0-34.0); MCHC 29.1 g/dL (28.0-37.0); RBC 3.84 mil/uL (4.20-5.00); RDW 20.7 % (10.5-14.5); WBC 13.7 thou/uL (4.0-11.0)
[2021-07-16 05:47] LABS: ANION GAP < 0 mmol/L (7-16); BUN 17 mg/dL (7-18); CALCIUM 8.6 mg/dL (8.5-10.1); CHLORIDE 101 mmol/L (98-107); CO2 41 mmol/L (21-32); CREATININE 0.8 mg/dL (0.6-1.0); GLUCOSE 94 mg/dL (74-106); MAGNESIUM 1.9 mg/dL (1.8-2.4); POTASSIUM 4.6 mmol/L (3.5-5.1); SODIUM 140 mmol/L (136-145)
[2021-07-16 07:44] VITALS: BP 152/85
[2021-07-16 11:16] VITALS: BP 130/71
--- NOTE | 2021-07-16 15:13 | NUR ---
SW reviewed chart and spoke with nursing and attending physician. Pt is on 3L of O2. Pt was unable to work with therapy over the weekend due to elevated HR. SW discussed with [facility] liaison, who states they would like to see pt's HR be under control and see pt's participation with therapy. HERLINDA faxed clinical/therapy note from today to [facility] for review. Pt to be started on a new med for rate control. SW met with pt at bedside to discuss discharge plan. Lengthy discussion with pt regarding discharge plan and needs. Pt states that she is wanting to get to [facility] if she is able to go there, and she is trying to see if she can come up with the $875 copay that she will need up front for admission. SW explained the need for more therapy notes to show that she meets the admission criteria for [facility]. Pt states that if she cannot, she will go home with . SW explained that if pt does go home with , and she needs placement and/or is able to come up with the funds to go to [facility], there is an option to have an eval by [facility] at home for admission. Pt tearful and verbalized understanding. Pt asked SW when she will be able to return to work. SW explained that a physician will need to provide that recommendation. SW updated nursing and attending physician. HERLINDA updated both [facility] and [facility] liaisons. HERLINDA is following to assist as needed with discharge planning.
[2021-07-16 16:14] VITALS: BP 136/78
[2021-07-16 20:05] VITALS: BP 129/78
--- NOTE | 2021-07-16 22:13 | NUR ---
PT WATCHING TV, JOKING WITH STAFF. O2 PER NC. LUNGS DIMINISHED. CURRY TO DD. PT PROVIDED HS SNACK. PT TALKED ABOUT CONCERNS R/T NEW CARDIAC MEDICATION, HOW HER HR INCREASES WITH AMBULATION, GOING HOME BY HERSELF. GLUTEAL DRESSING INTACT. PT DECLINED TO CHANGE GOWN UNTIL AM. PT OBESE, CALLS FOR ASSISTANCE WITH REPOSITIONING, SHIFTS SELF AT TIMES.
[2021-07-17 04:05] VITALS: BP 150/58
[2021-07-17 07:25] VITALS: BP 128/47
[2021-07-17 11:29] VITALS: BP 120/62
[2021-07-17 15:01] VITALS: BP 120/62
--- NOTE | 2021-07-17 15:08 | NUR ---
DISCHARGE NOTE: HERLINDA reviewed chart and spoke with nursing and attending physician. Pt's HR elevated with PT and OT today. HERLINDA discussed with [facility] liaison, who states that they would not be able to accept due to pt's HR and that pt would not be able to tolerate the amount of required therapy. HERLINDA updated attending physician, who states pt is medically stable for discharge home today with HH. HERLINDA met with pt at bedside to provide update and discuss discharge plan. Pt states she was told she was going to stay another day or two and her son is not at home. Pt does not have the keys to his apt. SW explained that physician states pt is stable for discharge and HH will contact her/her son to arrange the first HH visit. Pt states her son will be home later today and that his cell phone is the only number that is available. SW states that the hospital can arrange w/c van transportation with O2 to her son's apt when he is home. Pt to notify pt's nurse when her son is home and then transportation can be scheduled. Pt agreeable with plan. HERLINDA updated [facility] liaison of pt's discharge. Awaiting discharge ppwk at this time. HERLINDA updated [facility] liaison. Pt is able to be evaluated at home by [facility] if requested. HERLINDA updated HH liaison. Contact info for HH placed in pt's discharge summary. Pt has home O2 in place through [facility]. Pt is normally on 3L of O2. Nursing to call [facility] when pt is ready for discharge. Transportation approved by Director of Case Mgmt. Finalized discharge ppwk to be faxed to when available. HERLINDA is following to assist as needed with discharge planning. WILDER -- [facility]--
[2021-07-17 15:54] VITALS: BP 140/85
[2021-07-17] MEDS ORDERED: SEROQUEL 25 MG25 M1 PO (16:06)
[2021-07-17] MEDS ORDERED: PULMICORT0.5 MG/21 INH (16:06)
[2021-07-17] MEDS ORDERED: PEPCID20 MG PO (16:06)
[2021-07-17] MEDS ORDERED: PREDNISONE 20 M20 M1 PO (16:06)
[2021-07-17] MEDS ORDERED: DILTIAZEM 24HR300 M2 PO (16:06)
[2021-07-17] MEDS ORDERED: ACETAMINOPHEN325 M1 PO (16:06)
[2021-07-17 20:12] VITALS: BP 152/70
--- NOTE | 2021-07-18 02:42 | NUR ---
O2 at 3L/NC at shift change then on CPAP at HS and kept it while asleep. No respiratory distress .Denies being in pain. Used bedpan and had bm. Dressing intact on buttock wound. Making some progress towards care plan goals.
[2021-07-18 04:44] VITALS: BP 131/72
[2021-07-18 07:33] VITALS: BP 143/78
[2021-07-18 09:02] VITALS: BP 143/78
--- NOTE | 2021-07-18 12:00 | NUR ---
DISCHARGE NOTE: HERLINDA reviewed chart and spoke with nursing and attending physician. Pt is medically stable for discharge home today with HH services. Director of Case Mgmt spoke with pt last evening to discuss discharge plan. HERLINDA met with pt at bedside to discuss discharge plan. Pt states her son gets off from work around 1300 and will come pick her up. SW confirmed with pt that her O2 concentrator has been moved into her son's apt, which is where she will discharge to. Pt states her son is not going to be able to bring a portable O2 tank with him. SW offered to arrange w/c van transportation home, who will provide an O2 tank. Pt states she needs to call her son. SW instructed pt to notify SW or her nurse if we need to arrange transportation home. Pt verbalized understanding. HERLINDA updated pt's nurse and attending physician. HERLINDA notified [facility] of pt's discharge. HERLINDA placed call to [employer] to see if they would be able to deliver a portable O2 tank can be delivered to the hospital. Portable O2 tank can be delivered. [facility] is unable to give a timeframe of delivery. HERLINDA updated pt's nurse. If pt leaves before the O2 tank is delivered, HERLINDA will notify [facility]. Contact info for HH and [facility] in pt's discharge summary. HERLINDA is following to assist as needed with discharge planning.
--- NOTE | 2021-07-18 15:45 | NUR ---
DC TO HOME NOW.
--- NOTE | 2021-07-20 13:52 | HC ---
[facility] [address] [address] CONSULTATION Name: BIBI DALLAS Room #: 359-P [facility] M.R.#: [id number] Admission: 07/03/21 Attend Phys: John Nolasco MD Discharge: 07/18/21 Date of : 65 Report #: [id number] THIS REPORT FOR: cc: Luis Fernando Story MD, Srinath MD Smithson,Venu Lay MD ~ HISTORY OF PRESENT ILLNESS: The patient is a 55-year-old -[place] female, morbidly obese, admitted with respiratory distress from [facility]. She was intubated 07/03 through 07/08 for COPD exacerbation and acute on chronic congestive heart failure. She was also noted to have a healthcare-associated pneumonia and sepsis. She has a chronic stage III right gluteal wound and wound care is involved. Protein calorie malnutrition with albumin 2.7. We are seeing her in Rehabilitation Medicine consultation. PAST MEDICAL HISTORY: Includes COPD, on chronic home O2; steroid dependent; hypertension; diabetes mellitus type 2; obstructive sleep apnea with recommendations for CPAP for sleep, but she has not tolerated well; GERD; morbid obesity; depression; atrial fibrillation. MEDICATIONS: Please see the full medication listing. ALLERGIES: No known drug allergies. SOCIAL HISTORY: She had been living with her son up until 6 months ago and she has been in a nursing facility at [facility] for wound care. Apparently was bitten by a brown recluse. She has not had therapy at [facility] and has just had wound care per her history. She is in a long-term care section. REVIEW OF SYSTEMS: No current complaints of chest pain, shortness of breath or abdominal discomfort. PHYSICAL EXAMINATION: GENERAL: A 55-year-old morbidly obese -[place] female, in no obvious distress. She is 5 feet 1 inches, 358 pounds. Pleasant. HEENT: Facies appeared symmetric. EXTREMITIES: I did not examine her gluteal wound. NEUROLOGIC: She has functional range of motion of the upper extremities within her body habitus with strength probably a grade 3+/5. Lower extremities strength is a grade 3+/5. No focal calf swelling. Difficult to assess hip muscular strength with her significant pannus. Sit to supine is max assist x 2, max assist x 2 to get up with a front-wheeled walker, stood mod assist x 2 to max assist of 2. Upper body dressing is min assist. She has the indwelling Iglesias catheter and she is currently on 3 liters nasal cannula. [address] [address] CONSULTATION Name: BIBI DALLAS Room #: 359-P [facility].#: [id number] Admission: 07/03/21 Attend Phys: John Nolasco MD Discharge: 07/18/21 Date of : 65 Report #: [id number] ASSESSMENT: A 55-year-old -[place] female with the following problems: 1. Acute on chronic hypoxic hypercapnic respiratory failure with intubation from 07/03/2021 through 07/08/2021. 2. Acute exacerbation of chronic obstructive pulmonary disease. 3. Healthcare-associated pneumonia. 4. Sepsis. 5. Morbid obesity. 6. Acute on chronic diastolic heart failure. 7. Paroxysmal atrial fibrillation. 8. Diabetes mellitus type 2. 9. Hypertension. 10. Stage III right gluteal pressure wound. PLAN: The patient is at a low functional level, needing max assist x 2 to try to stand and is currently nonambulatory. Discussed the current status with the son and the fact that she would need considerable assist to try to return back to the home setting and question if this was practical. I recommended that she get some therapy at least at the skilled level with physical therapy and occupational therapy to further improve her strength and endurance while at the same time treating her wound. The hope would be as she further improves with functional mobility and ADLs and with further healing of the wound, she would eventually be able to return back to the home setting with the son and home health care after a halfway facility stay. My recommendation would be that she go to a halfway facility level rather than back to long-term care. It is my understanding that the patient's insurance is out of network for the acute rehab licea here at [facility]. Case management to assist regarding a halfway facility option for this patient including potentially returning back to [facility], but at the skilled level instead of long-term care. Thank you for asking us to assist in this patient's care. <ELECTRONICALLY SIGNED> By: Venu Aguirre MD 07/20/21 1352 [id number] Venu Aguirre MD /nt
== END 2021-07-18 16:00 | disposition home health service (06) | DRG 870 ==
LOC: ER 06:38 → EROBS 11:20 → 3W 11:20 → ICU 11:20 → 3W 07-09 22:57
PROVIDERS: Emergency Medicine; Internal Medicine Pulmonary Disease; Nurse Practitioner; Pediatrics; ADMIT Internal Medicine; ATTEND Internal Medicine
DX: A41.9 Sepsis, unspecified organism (principal); L89.313 Pressure ulcer of right buttock, stage 3; J69.0 Pneumonitis due to inhalation of food and vomit; J96.21 Acute and chronic respiratory failure with hypoxia; J96.22 Acute and chronic respiratory failure with hypercapnia; I50.33 Acute on chronic diastolic (congestive) heart failure; G92.9 Unspecified toxic encephalopathy; I11.0 Hypertensive heart disease with heart failure; J44.1 Chronic obstructive pulmonary disease with (acute) exacerbation; E87.3 Alkalosis; E44.0 Moderate protein-calorie malnutrition; Z68.44 Body mass index [BMI] 60.0-69.9, adult; N17.9 Acute kidney failure, unspecified; Z20.822 Contact with and (suspected) exposure to COVID-19; E11.9 Type 2 diabetes mellitus without complications; E78.5 Hyperlipidemia, unspecified; K21.9 Gastro-esophageal reflux disease without esophagitis; F32.9 Major depressive disorder, single episode, unspecified; L85.9 Epidermal thickening, unspecified; E66.01 Morbid (severe) obesity due to excess calories; I48.0 Paroxysmal atrial fibrillation; E87.5 Hyperkalemia; D64.9 Anemia, unspecified; E21.3 Hyperparathyroidism, unspecified; G47.33 Obstructive sleep apnea (adult) (pediatric); R53.81 Other malaise; Z79.899 Other long term (current) drug therapy
CPT/HCPCS: 10078; 10879; 50455